=== PATIENT | female | born 1985 | race Caucasian/White ===

== ENCOUNTER 2022-07-02 17:17 | Emergency (ER) | payer BC, OTHER ==
[2022-07-02] MEDS ORDERED: Ketorolac Tromethamine 30 MG/ML VIAL ONE (17:49)
[2022-07-02] MEDS ORDERED: Cyclobenzaprine 10 MG TAB ONE (18:19)
== END 2022-07-02 18:22 | disposition home or self-care (01) ==
LOC: BURERS 17:17
DX: S29.011A Strain of muscle and tendon of front wall of thorax, initial encounter (principal); J06.9 Acute upper respiratory infection, unspecified; X58.XXXA Exposure to other specified factors, initial encounter
CPT/HCPCS: 71046; 93005; 96372; J1885

== ENCOUNTER 2022-12-01 14:12 | Emergency (ER) | payer BC | END 2022-12-01 15:08 | disposition home or self-care (01) | LOC: BURERS 14:12 | DX: L72.0 Epidermal cyst (principal); I10 Essential (primary) hypertension; F17.210 Nicotine dependence, cigarettes, uncomplicated | CPT/HCPCS: 99283 ==